=== PATIENT | female | born 1940 | race Caucasian/White ===

== ENCOUNTER 2018-02-16 06:08 | Inpatient (IN) | payer MEDICARE, OTHER ==
[~2018-02-16] VITALS: Ht 152.4 cm; Wt 53.4 kg
[2018-02-16] MEDS ORDERED: SERT50TA PO (06:35)
[2018-02-16] MEDS ORDERED: SENN1TAB7 PO (06:35)
[2018-02-16] MEDS ORDERED: SEVE800T8 PO (06:35)
[2018-02-16] MEDS ORDERED: CARV3.1212 PO (06:35)
[2018-02-16] MEDS ORDERED: ATOR40TA78 PO (06:35)
[2018-02-16] MEDS ORDERED: CALC0.25 PO (06:35)
[2018-02-16] MEDS ORDERED: CIPR500T87 PO (06:35)
[2018-02-16] MEDS ORDERED: ASPI-496 PO (06:35)
[2018-02-16] MEDS ORDERED: LACT100C2 PO (06:35)
[2018-02-16] MEDS ORDERED: FAMO20TA7 PO (06:35)
[2018-02-16] MEDS ORDERED: SODIUM CHLORIDE 0.9% 1,000 ML IV SCH ×2 (06:37→14:00)
[2018-02-16] MEDS ORDERED: FENTANYL PF 250 MCG/5ML ONE (07:01)
[2018-02-16] MEDS ORDERED: MIDAZOLAM 1 MG/ML, 2ML ONE (07:01)
[2018-02-16 07:20] LABS: ALANINE AMINOTRANSFERASE 55 U/L (12-78); ALBUMIN 2.8 g/dL (3.4-5.0); ANION GAP 10 mmol/L (5-15); CALCIUM 7.6 mg/dL (8.5-10.1); CHLORIDE 98 mmol/L (98-107); CREATININE 3.06 mg/dL (0.55-1.02)
[2018-02-16 07:23] LABS: ALKALINE PHOSPHATASE 137 U/L (45-117); BILIRUBIN,TOTAL 0.4 mg/dL (0.2-1.0); TOTAL PROTEIN 7.2 g/dL (6.4-8.2)
[2018-02-16 07:27] LABS: BASOPHILS # (AUTO) 0.02 x10^3/uL (0-0.1); BASOPHILS % (AUTO) 0 % (0-1); EOSINOPHILS % (AUTO) 0 % (1-7); LYMPHOCYTES % (AUTO) 22 % (22-44); MD NO; MEAN CORPUSCULAR HEMOGLOBIN 32.7 pg (27.0-34.8); MEAN CORPUSCULAR HGB CONC 32.1 g/dL (32.4-35.8); MEAN CORPUSCULAR VOLUME 101.9 fL (80-100); MEAN PLATELET VOLUME 8.1 fL (7.4-10.4); MONOCYTES # (AUTO) 0.32 x10^3/uL (0.2-0.8); MONOCYTES % (AUTO) 7 % (2-9); NEUTROPHILS # (AUTO) 3.25 x10^3/uL (1.8-6.8); NEUTROPHILS % (AUTO) 71 % (42-75); PLATELET COUNT 162 x10^3/uL (130-400); RED BLOOD COUNT 3.46 x10^6/uL (3.82-5.3); RED CELL DISTRIBUTION WIDTH 16.9 % (9.6-15.2)
[2018-02-16] MEDS ORDERED: ACETAMINOPHEN 500 MG TABLET PO ONE (07:30)
[2018-02-16] MEDS ORDERED: GABAPENTIN 300 MG CAPSULE PO ONE (07:30)
[2018-02-16] MEDS ORDERED: FENTANYL PF 100 MCG/2ML IV PRN (09:30)
[2018-02-16] MEDS ORDERED: ACETAMINOPHEN 325 MG TABLET PO PRN (09:30)
[2018-02-16] MEDS ORDERED: PLEASE ENTER HEIGHT AND WEIGHT MC SCH (10:30)
[2018-02-16] MEDS ORDERED: SUCCINYLCHOLINE 20 MG/ML, 10ML ONE (10:47)
[2018-02-16] MEDS ORDERED: PROPOFOL 10 MG/ML, 20ML ONE (10:47)
[2018-02-16] MEDS ORDERED: EPHEDRINE 50 MG/ML, 1ML ONE (10:47)
[2018-02-16 13:09] VITALS: BP 93/54
[2018-02-16] MEDS ORDERED: HYDROcodone/APAP 5/325 TABLET PO PRN (14:00)
[2018-02-16] MEDS ORDERED: ENTER SLIDING SCALE INSULIN IF ORDERED XX PRN (14:00)
[2018-02-16] MEDS ORDERED: hydrALAzine 20 MG/ML, 1ML IV PRN (14:00)
[2018-02-16] MEDS ORDERED: ONDANSETRON 2MG/ML, 2ML IVPush PRN (14:30)
[2018-02-16] MEDS ORDERED: POLYETHYLENE GLYCOL 17 GM PACKET PO PRN (14:30)
[2018-02-16] MEDS ORDERED: LABETALOL 5MG/ML, 20ML IVPush PRN (14:30)
[2018-02-16] MEDS ORDERED: ONDANSETRON ODT 4 MG PO PRN (14:30)
[2018-02-16] MEDS ORDERED: FAMOTIDINE 20 MG TABLET PO SCH (14:30)
[2018-02-16 14:58] LABS: FREE T4 (FREE THYROXINE) 0.73 ng/dL (0.76-1.46); THYROID STIMULATING HORMONE 3.64 mIU/L (0.358-3.740)
[2018-02-16] MEDS: CEFAZOLIN PMX 1GM/50ML 50 ML IVPB SCH ×2 (15:26→23:34)
[2018-02-16] MEDS: HEPARIN 5,000 UNITS/ML, 1ML SQ SCH ×2 (15:31→23:34)
[2018-02-16 16:08] LABS: INTERNATIONAL NORMALIZED RATIO 1.19 (0.93-1.1); PROTHROMBIN TIME 12.2 Seconds (9.6-11.5)
[2018-02-16] MEDS: SEVELAMER CARBONATE 800MG TAB PO SCH (17:00)
[2018-02-16] MEDS: INSULIN REGULAR, HUMAN 100 UNIT/ML 3ML VIAL LOW DOSE SS SQ-INSULIN SCH ×2 (18:10→21:00)
[2018-02-16 19:45] VITALS: BP 107/61
[2018-02-16] MEDS: CARVEDILOL 3.125 MG TABLET PO SCH (21:16)
[2018-02-16] MEDS: SODIUM CHLORIDE FLUSH 10ML SYR IVF SCH (21:16)
[2018-02-16] MEDS: ATORVASTATIN 40 MG TABLET PO SCH (21:16)
[2018-02-16 23:38] VITALS: BP 94/53
[2018-02-17] VITALS (7 sets, daily range): BP systolic 85–141; BP diastolic 46–74
[2018-02-17] MEDS: OXYcodone 5 MG/5 ML ORAL.SOL UDC PO PRN ×2 (03:21→03:49)
[2018-02-17 06:00] LABS: ALBUMIN 2.6 g/dL (3.4-5.0); ANION GAP 11 mmol/L (5-15); CALCIUM 7.5 mg/dL (8.5-10.1); CHLORIDE 94 mmol/L (98-107)
[2018-02-17 06:01] LABS: CREATININE 4.74 mg/dL (0.55-1.02)
[2018-02-17 06:16] LABS: BASOPHILS # (AUTO) 0.02 x10^3/uL (0-0.1); BASOPHILS % (AUTO) 0 % (0-1); EOSINOPHILS % (AUTO) 0 % (1-7); LYMPHOCYTES # (AUTO) 1.35 x10^3/uL (1-3.4); LYMPHOCYTES % (AUTO) 23 % (22-44); MD NO; MEAN CORPUSCULAR HEMOGLOBIN 33.4 pg (27.0-34.8); MEAN CORPUSCULAR HGB CONC 32.9 g/dL (32.4-35.8); MEAN CORPUSCULAR VOLUME 101.6 fL (80-100); MEAN PLATELET VOLUME 7.9 fL (7.4-10.4); MONOCYTES # (AUTO) 0.41 x10^3/uL (0.2-0.8); MONOCYTES % (AUTO) 7 % (2-9); NEUTROPHILS # (AUTO) 4.05 x10^3/uL (1.8-6.8); NEUTROPHILS % (AUTO) 69 % (42-75); PLATELET COUNT 136 x10^3/uL (130-400); RED CELL DISTRIBUTION WIDTH 17.2 % (9.6-15.2)
[2018-02-17] MEDS: INSULIN REGULAR, HUMAN 100 UNIT/ML 3ML VIAL LOW DOSE SS SQ-INSULIN SCH ×4 (08:32→21:22)
[2018-02-17] MEDS: SENNA/DOCUSATE TABLET PO SCH ×2 (08:33→09:00)
[2018-02-17] MEDS: ASPIRIN 81 MG TABLET EC PO SCH (08:33)
[2018-02-17] MEDS: CALCITRIOL 0.25 MCG CAPSULE PO SCH (08:33)
[2018-02-17] MEDS: SERTRALINE 50MG TABLET PO SCH (08:33)
[2018-02-17] MEDS: CARVEDILOL 3.125 MG TABLET PO SCH ×3 (09:00→21:06)
[2018-02-17] MEDS: HEPARIN 5,000 UNITS/ML, 1ML SQ SCH ×2 (10:22→18:47)
[2018-02-17] MEDS: SEVELAMER CARBONATE 800MG TAB PO SCH ×2 (10:22→21:05)
[2018-02-17] MEDS: SODIUM CHLORIDE FLUSH 10ML SYR IVF SCH ×2 (10:23→21:00)
[2018-02-17] MEDS ORDERED: ENOXAPARIN 40 MG/0.4 ML SQ SCH (12:00)
[2018-02-17 19:13] LABS: HEMOGLOBIN A1C 7.9 % (4.2-6.3)
[2018-02-17] MEDS: ATORVASTATIN 40 MG TABLET PO SCH (21:06)
[2018-02-17] MEDS: morphine SULFATE 10 MG/ML, 1ML IVPush PRN (21:16)
[2018-02-18 00:55] VITALS: BP 94/56
[2018-02-18] MEDS: HEPARIN 5,000 UNITS/ML, 1ML SQ SCH ×3 (01:59→19:50)
[2018-02-18 05:20] LABS: BASOPHILS # (AUTO) 0.02 x10^3/uL (0-0.1); BASOPHILS % (AUTO) 0 % (0-1); EOSINOPHILS % (AUTO) 0 % (1-7); LYMPHOCYTES # (AUTO) 1.55 x10^3/uL (1-3.4); LYMPHOCYTES % (AUTO) 20 % (22-44); MD NO; MEAN CORPUSCULAR HEMOGLOBIN 33.1 pg (27.0-34.8); MEAN CORPUSCULAR HGB CONC 32.4 g/dL (32.4-35.8); MEAN CORPUSCULAR VOLUME 102.3 fL (80-100); MEAN PLATELET VOLUME 8.1 fL (7.4-10.4); MONOCYTES # (AUTO) 0.57 x10^3/uL (0.2-0.8); MONOCYTES % (AUTO) 7 % (2-9); NEUTROPHILS # (AUTO) 5.72 x10^3/uL (1.8-6.8); NEUTROPHILS % (AUTO) 73 % (42-75); PLATELET COUNT 137 x10^3/uL (130-400); RED BLOOD COUNT 2.99 x10^6/uL (3.82-5.3); RED CELL DISTRIBUTION WIDTH 17.6 % (9.6-15.2)
[2018-02-18 05:25] LABS: ALBUMIN 2.4 g/dL (3.4-5.0); ANION GAP 8 mmol/L (5-15); CALCIUM 8.4 mg/dL (8.5-10.1); CHLORIDE 96 mmol/L (98-107)
[2018-02-18 05:29] LABS: ALANINE AMINOTRANSFERASE 11 U/L (12-78); ALKALINE PHOSPHATASE 98 U/L (45-117); BILIRUBIN,TOTAL 0.6 mg/dL (0.2-1.0); CREATININE 3.39 mg/dL (0.55-1.02); TOTAL PROTEIN 6.6 g/dL (6.4-8.2)
[2018-02-18] MEDS: INSULIN REGULAR, HUMAN 100 UNIT/ML 3ML VIAL LOW DOSE SS SQ-INSULIN SCH ×4 (06:00→21:00)
[2018-02-18] MEDS: SENNA/DOCUSATE TABLET PO SCH ×2 (08:19)
[2018-02-18] MEDS: CALCITRIOL 0.25 MCG CAPSULE PO SCH (08:19)
[2018-02-18] MEDS: SERTRALINE 50MG TABLET PO SCH (08:19)
[2018-02-18] MEDS: SEVELAMER CARBONATE 800MG TAB PO SCH ×2 (08:19→17:38)
[2018-02-18] MEDS: CARVEDILOL 3.125 MG TABLET PO SCH ×3 (08:20→21:19)
[2018-02-18] MEDS: ASPIRIN 81 MG TABLET EC PO SCH (08:20)
[2018-02-18] MEDS: SODIUM CHLORIDE FLUSH 10ML SYR IVF SCH ×2 (08:21→21:00)
[2018-02-18 08:23] VITALS: BP 85/46
[2018-02-18] MEDS ORDERED: SODIUM CHLORIDE 0.9%, 250ML IVBOLUS ONE (08:30)
[2018-02-18 15:33] VITALS: BP 93/57
[2018-02-18 20:00] VITALS: BP 97/55
[2018-02-18] MEDS: ATORVASTATIN 40 MG TABLET PO SCH (21:19)
[2018-02-19] MEDS: morphine SULFATE 10 MG/ML, 1ML IVPush PRN
[2018-02-19 02:00] VITALS: BP 112/64
[2018-02-19] MEDS: HEPARIN 5,000 UNITS/ML, 1ML SQ SCH ×3 (03:28→22:07)
[2018-02-19] MEDS: INSULIN REGULAR, HUMAN 100 UNIT/ML 3ML VIAL LOW DOSE SS SQ-INSULIN SCH ×4 (05:55→21:00)
[2018-02-19] MEDS: CARVEDILOL 3.125 MG TABLET PO SCH ×2 (08:05→21:00)
[2018-02-19] MEDS: SERTRALINE 50MG TABLET PO SCH (08:05)
[2018-02-19] MEDS: CALCITRIOL 0.25 MCG CAPSULE PO SCH (08:05)
[2018-02-19] MEDS: ASPIRIN 81 MG TABLET EC PO SCH (08:05)
[2018-02-19] MEDS: SODIUM CHLORIDE FLUSH 10ML SYR IVF SCH ×2 (08:05→22:07)
[2018-02-19] MEDS: SENNA/DOCUSATE TABLET PO SCH (08:05)
[2018-02-19] MEDS: SEVELAMER CARBONATE 800MG TAB PO SCH ×2 (08:05→16:07)
[2018-02-19 10:00] VITALS: BP 96/46
[2018-02-19 14:44] VITALS: BP 100/53
[2018-02-19 19:49] VITALS: BP 96/59
[2018-02-19] MEDS: ATORVASTATIN 40 MG TABLET PO SCH (22:07)
[2018-02-20 03:13] VITALS: BP 94/59
[2018-02-20] MEDS: HEPARIN 5,000 UNITS/ML, 1ML SQ SCH ×3 (05:07→21:40)
[2018-02-20 05:12] LABS: BASOPHILS # (AUTO) 0.13 x10^3/uL (0-0.1); BASOPHILS % (AUTO) 2 % (0-1); EOSINOPHILS # (AUTO) 0.01 x10^3/uL (0-0.4); EOSINOPHILS % (AUTO) 0 % (1-7); LYMPHOCYTES # (AUTO) 1.29 x10^3/uL (1-3.4); LYMPHOCYTES % (AUTO) 20 % (22-44); MD NO; MEAN CORPUSCULAR HEMOGLOBIN 33.7 pg (27.0-34.8); MEAN CORPUSCULAR HGB CONC 32.8 g/dL (32.4-35.8); MEAN CORPUSCULAR VOLUME 102.6 fL (80-100); MEAN PLATELET VOLUME 8.7 fL (7.4-10.4); MONOCYTES # (AUTO) 0.42 x10^3/uL (0.2-0.8); MONOCYTES % (AUTO) 7 % (2-9); NEUTROPHILS # (AUTO) 4.48 x10^3/uL (1.8-6.8); NEUTROPHILS % (AUTO) 71 % (42-75); PLATELET COUNT 152 x10^3/uL (130-400); RED BLOOD COUNT 2.97 x10^6/uL (3.82-5.3); RED CELL DISTRIBUTION WIDTH 17.3 % (9.6-15.2)
[2018-02-20 05:15] LABS: CHLORIDE 95 mmol/L (98-107)
[2018-02-20 05:23] LABS: ALBUMIN 2.4 g/dL (3.4-5.0); ANION GAP 12 mmol/L (5-15); CREATININE 5.61 mg/dL (0.55-1.02)
[2018-02-20] MEDS: INSULIN REGULAR, HUMAN 100 UNIT/ML 3ML VIAL LOW DOSE SS SQ-INSULIN SCH ×4 (07:00→21:00)
[2018-02-20] MEDS: SENNA/DOCUSATE TABLET PO SCH (09:00)
[2018-02-20] MEDS ORDERED: ALBUMIN HUMAN 25% 50 ML IV PRN (09:00)
[2018-02-20] MEDS: CARVEDILOL 3.125 MG TABLET PO SCH ×2 (09:00→21:00)
[2018-02-20] MEDS: CALCITRIOL 0.25 MCG CAPSULE PO SCH (09:00)
[2018-02-20] MEDS ORDERED: ALBUMIN HUMAN 25% 100 ML IV PRN (09:00)
[2018-02-20] MEDS: SEVELAMER CARBONATE 800MG TAB PO SCH ×2 (12:00→18:38)
[2018-02-20] MEDS: SODIUM CHLORIDE FLUSH 10ML SYR IVF SCH ×2 (15:01→21:40)
[2018-02-20] MEDS: ASPIRIN 81 MG TABLET EC PO SCH (15:02)
[2018-02-20] MEDS: SERTRALINE 50MG TABLET PO SCH (15:02)
[2018-02-20] MEDS ORDERED: HYDROmorphone 2 MG/ML, 1ML ONE (15:35)
[2018-02-20] MEDS ORDERED: HYDROmorphone 1 MG/ML, 1ML IV ONE (15:35)
[2018-02-20] MEDS ORDERED: NALOXONE 0.4 MG/ML, 1ML ONE (16:13)
[2018-02-20] MEDS ORDERED: MORPHINE SULFATE 4 MG/ML, 1ML ONE ×2 (16:25→16:32)
[2018-02-20] MEDS ORDERED: MORPHINE SULFATE 4 MG/ML, 1ML IVPush PRN ×2 (16:30→16:35)
[2018-02-20] MEDS ORDERED: HALOPERIDOL 5 MG/ML ONE (16:44)
[2018-02-20] MEDS ORDERED: HALOPERIDOL 5 MG/ML IM PRN (16:50)
[2018-02-20] MEDS ORDERED: NALOXONE 0.4 MG/ML, 1ML IVPush ONE (17:30)
[2018-02-20 19:51] VITALS: BP 96/62
[2018-02-20] MEDS: ATORVASTATIN 40 MG TABLET PO SCH ×2 (21:41→21:48)
[2018-02-21 01:57] VITALS: BP 87/48
[2018-02-21 05:55] LABS: ALANINE AMINOTRANSFERASE 24 U/L (12-78); ALBUMIN 2.5 g/dL (3.4-5.0); ANION GAP 9 mmol/L (5-15); BASOPHILS # (AUTO) 0.02 x10^3/uL (0-0.1); BASOPHILS % (AUTO) 0 % (0-1); CALCIUM 8.5 mg/dL (8.5-10.1); CHLORIDE 95 mmol/L (98-107); CREATININE 3.76 mg/dL (0.55-1.02); EOSINOPHILS # (AUTO) 0.01 x10^3/uL (0-0.4); EOSINOPHILS % (AUTO) 0 % (1-7); LYMPHOCYTES # (AUTO) 1.02 x10^3/uL (1-3.4); LYMPHOCYTES % (AUTO) 18 % (22-44); MD NO; MEAN CORPUSCULAR HEMOGLOBIN 33.8 pg (27.0-34.8); MEAN CORPUSCULAR HGB CONC 32.5 g/dL (32.4-35.8); MEAN PLATELET VOLUME 8.3 fL (7.4-10.4); MONOCYTES # (AUTO) 0.43 x10^3/uL (0.2-0.8); MONOCYTES % (AUTO) 8 % (2-9); NEUTROPHILS % (AUTO) 73 % (42-75); PLATELET COUNT 167 x10^3/uL (130-400); RED BLOOD COUNT 3.13 x10^6/uL (3.82-5.3); RED CELL DISTRIBUTION WIDTH 18.1 % (9.6-15.2)
[2018-02-21 05:57] LABS: ALKALINE PHOSPHATASE 212 U/L (45-117); BILIRUBIN,TOTAL 0.6 mg/dL (0.2-1.0); TOTAL PROTEIN 6.5 g/dL (6.4-8.2)
[2018-02-21] MEDS: HEPARIN 5,000 UNITS/ML, 1ML SQ SCH ×2 (06:05→14:20)
[2018-02-21] MEDS: INSULIN REGULAR, HUMAN 100 UNIT/ML 3ML VIAL LOW DOSE SS SQ-INSULIN SCH ×3 (07:00→16:00)
[2018-02-21] MEDS: SODIUM CHLORIDE FLUSH 10ML SYR IVF SCH (08:18)
[2018-02-21] MEDS: CARVEDILOL 3.125 MG TABLET PO SCH (08:18)
[2018-02-21 08:19] VITALS: BP 92/48
[2018-02-21] MEDS ORDERED: MORPHINE SULFATE 4 MG/ML, 1ML IVPush PRN (09:00)
[2018-02-21] MEDS: SEVELAMER CARBONATE 800MG TAB PO SCH ×3 (10:01→17:44)
[2018-02-21] MEDS: CALCITRIOL 0.25 MCG CAPSULE PO SCH (10:02)
[2018-02-21] MEDS: ASPIRIN 81 MG TABLET EC PO SCH (10:02)
[2018-02-21] MEDS: SENNA/DOCUSATE TABLET PO SCH (10:02)
[2018-02-21] MEDS ORDERED: SODIUM CHLORIDE 0.9%, 250ML IVBOLUS ONE (13:00)
[2018-02-21] MEDS ORDERED: LACTATED RINGERS 500 ML IVBOLUS ONE (13:00)
[2018-02-21 14:20] VITALS: BP 81/40
[2018-02-21 16:20] VITALS: BP 95/47
[2018-02-21 19:38] VITALS: BP 96/60
[2018-02-22] MEDS: HEPARIN 5,000 UNITS/ML, 1ML SQ SCH ×3 (01:32→21:14)
[2018-02-22] MEDS: SERTRALINE 50MG TABLET PO SCH ×2 (01:32→21:14)
[2018-02-22] MEDS: SODIUM CHLORIDE FLUSH 10ML SYR IVF SCH ×3 (01:34→21:14)
[2018-02-22] MEDS: INSULIN REGULAR, HUMAN 100 UNIT/ML 3ML VIAL LOW DOSE SS SQ-INSULIN SCH ×5 (01:42→21:00)
[2018-02-22 02:35] VITALS: BP 115/71
[2018-02-22 05:48] LABS: BASOPHILS # (AUTO) 0.02 x10^3/uL (0-0.1); BASOPHILS % (AUTO) 0 % (0-1); EOSINOPHILS % (AUTO) 0 % (1-7); LYMPHOCYTES # (AUTO) 0.73 x10^3/uL (1-3.4); LYMPHOCYTES % (AUTO) 13 % (22-44); MD NO; MEAN CORPUSCULAR HEMOGLOBIN 33.6 pg (27.0-34.8); MEAN CORPUSCULAR HGB CONC 32.5 g/dL (32.4-35.8); MEAN CORPUSCULAR VOLUME 103.4 fL (80-100); MEAN PLATELET VOLUME 7.9 fL (7.4-10.4); MONOCYTES # (AUTO) 0.41 x10^3/uL (0.2-0.8); MONOCYTES % (AUTO) 7 % (2-9); NEUTROPHILS # (AUTO) 4.35 x10^3/uL (1.8-6.8); NEUTROPHILS % (AUTO) 79 % (42-75); PLATELET COUNT 179 x10^3/uL (130-400); RED BLOOD COUNT 3.26 x10^6/uL (3.82-5.3); RED CELL DISTRIBUTION WIDTH 18.2 % (9.6-15.2)
[2018-02-22 05:49] LABS: ALBUMIN 2.5 g/dL (3.4-5.0); ANION GAP 10 mmol/L (5-15); CALCIUM 8.3 mg/dL (8.5-10.1); CHLORIDE 95 mmol/L (98-107)
[2018-02-22 05:54] LABS: ALANINE AMINOTRANSFERASE 28 U/L (12-78); ALKALINE PHOSPHATASE 190 U/L (45-117); BILIRUBIN,TOTAL 0.4 mg/dL (0.2-1.0); TOTAL PROTEIN 6.7 g/dL (6.4-8.2)
[2018-02-22 07:06] VITALS: BP 93/60
[2018-02-22] MEDS: SEVELAMER CARBONATE 800MG TAB PO SCH ×3 (08:00→18:05)
[2018-02-22] MEDS: ASPIRIN 81 MG TABLET EC PO SCH (09:00)
[2018-02-22] MEDS ORDERED: VANCOMYCIN PER PHARMACY MC PRN (09:00)
[2018-02-22] MEDS ORDERED: PHARMACOKINETIC CONSULTATION MC ONE (09:00)
[2018-02-22] MEDS ORDERED: PHARMACOKINETIC MONITORING MC PRN (09:00)
[2018-02-22] MEDS ORDERED: VANCOMYCIN 1,000 MG in SODIUM CHLORIDE 0.9% 100 ML IV ONE (10:00)
[2018-02-22] MEDS: SENNA/DOCUSATE TABLET PO SCH (15:40)
[2018-02-22] MEDS: CALCITRIOL 0.25 MCG CAPSULE PO SCH (15:41)
[2018-02-22] MEDS: ACETAMINOPHEN 325 MG TABLET PO PRN (18:42)
[2018-02-22 19:01] VITALS: BP 116/40
[2018-02-22] MEDS: ATORVASTATIN 40 MG TABLET PO SCH (21:14)
[2018-02-23 00:53] VITALS: BP 118/68
[2018-02-23 05:32] LABS: ALANINE AMINOTRANSFERASE 30 U/L (12-78); ALBUMIN 2.7 g/dL (3.4-5.0); ANION GAP 9 mmol/L (5-15); CALCIUM 8.6 mg/dL (8.5-10.1); CHLORIDE 94 mmol/L (98-107); CREATININE 3.42 mg/dL (0.55-1.02)
[2018-02-23] MEDS: ACETAMINOPHEN 325 MG TABLET PO PRN (05:34)
[2018-02-23] MEDS: HEPARIN 5,000 UNITS/ML, 1ML SQ SCH ×3 (05:34→21:09)
[2018-02-23 05:35] LABS: ALKALINE PHOSPHATASE 183 U/L (45-117); BILIRUBIN,TOTAL 0.7 mg/dL (0.2-1.0)
[2018-02-23] MEDS: INSULIN REGULAR, HUMAN 100 UNIT/ML 3ML VIAL LOW DOSE SS SQ-INSULIN SCH ×4 (06:25→21:29)
[2018-02-23 07:18] VITALS: BP 95/59
[2018-02-23 07:24] LABS: BASOPHILS # (AUTO) 0.05 x10^3/uL (0-0.1); BASOPHILS % (AUTO) 1 % (0-1); EOSINOPHILS # (AUTO) 0.01 x10^3/uL (0-0.4); EOSINOPHILS % (AUTO) 0 % (1-7); LYMPHOCYTES # (AUTO) 1.21 x10^3/uL (1-3.4); LYMPHOCYTES % (AUTO) 16 % (22-44); MD NO; MEAN CORPUSCULAR HEMOGLOBIN 33.2 pg (27.0-34.8); MEAN CORPUSCULAR HGB CONC 32.2 g/dL (32.4-35.8); MEAN CORPUSCULAR VOLUME 103.3 fL (80-100); MEAN PLATELET VOLUME 8.6 fL (7.4-10.4); MONOCYTES # (AUTO) 0.44 x10^3/uL (0.2-0.8); MONOCYTES % (AUTO) 6 % (2-9); NEUTROPHILS # (AUTO) 5.82 x10^3/uL (1.8-6.8); NEUTROPHILS % (AUTO) 77 % (42-75); PLATELET COUNT 199 x10^3/uL (130-400); RED BLOOD COUNT 3.69 x10^6/uL (3.82-5.3); RED CELL DISTRIBUTION WIDTH 18.7 % (9.6-15.2)
[2018-02-23] MEDS: ASPIRIN 81 MG TABLET EC PO SCH (08:08)
[2018-02-23] MEDS: CALCITRIOL 0.25 MCG CAPSULE PO SCH (08:08)
[2018-02-23] MEDS: SENNA/DOCUSATE TABLET PO SCH (08:08)
[2018-02-23] MEDS: SEVELAMER CARBONATE 800MG TAB PO SCH ×3 (08:08→17:18)
[2018-02-23] MEDS: SERTRALINE 50MG TABLET PO SCH (08:08)
[2018-02-23] MEDS: SODIUM CHLORIDE FLUSH 10ML SYR IVF SCH ×2 (08:09→21:09)
[2018-02-23 14:04] VITALS: BP 101/64
[2018-02-23 19:53] VITALS: BP 105/46
[2018-02-23] MEDS: ATORVASTATIN 40 MG TABLET PO SCH (21:09)
[2018-02-24 02:15] VITALS: BP 110/68
[2018-02-24] MEDS: HEPARIN 5,000 UNITS/ML, 1ML SQ SCH ×3 (05:13→20:10)
[2018-02-24 05:29] LABS: BASOPHILS # (AUTO) 0.05 x10^3/uL (0-0.1); BASOPHILS % (AUTO) 1 % (0-1); EOSINOPHILS # (AUTO) 0.01 x10^3/uL (0-0.4); EOSINOPHILS % (AUTO) 0 % (1-7); LYMPHOCYTES % (AUTO) 15 % (22-44); MD NO; MEAN CORPUSCULAR HEMOGLOBIN 34.1 pg (27.0-34.8); MEAN CORPUSCULAR HGB CONC 33.1 g/dL (32.4-35.8); MEAN PLATELET VOLUME 7.7 fL (7.4-10.4); MONOCYTES # (AUTO) 0.61 x10^3/uL (0.2-0.8); MONOCYTES % (AUTO) 8 % (2-9); NEUTROPHILS # (AUTO) 6.33 x10^3/uL (1.8-6.8); NEUTROPHILS % (AUTO) 77 % (42-75); PLATELET COUNT 192 x10^3/uL (130-400); RED BLOOD COUNT 3.28 x10^6/uL (3.82-5.3); RED CELL DISTRIBUTION WIDTH 19.1 % (9.6-15.2)
[2018-02-24 05:32] LABS: ALBUMIN 2.5 g/dL (3.4-5.0); ANION GAP 10 mmol/L (5-15); CALCIUM 8.8 mg/dL (8.5-10.1); CHLORIDE 94 mmol/L (98-107)
[2018-02-24 05:35] LABS: ALANINE AMINOTRANSFERASE 19 U/L (12-78); ALKALINE PHOSPHATASE 138 U/L (45-117); BILIRUBIN,TOTAL 0.8 mg/dL (0.2-1.0); CREATININE 4.49 mg/dL (0.55-1.02); TOTAL PROTEIN 6.4 g/dL (6.4-8.2)
[2018-02-24] MEDS: INSULIN REGULAR, HUMAN 100 UNIT/ML 3ML VIAL LOW DOSE SS SQ-INSULIN SCH ×4 (06:33→20:14)
[2018-02-24 06:35] VITALS: BP 94/54
[2018-02-24] MEDS: SEVELAMER CARBONATE 800MG TAB PO SCH ×3 (08:00→17:02)
[2018-02-24] MEDS: CALCITRIOL 0.25 MCG CAPSULE PO SCH (08:02)
[2018-02-24] MEDS: ASPIRIN 81 MG TABLET EC PO SCH (08:02)
[2018-02-24] MEDS: SERTRALINE 50MG TABLET PO SCH (08:02)
[2018-02-24] MEDS: SENNA/DOCUSATE TABLET PO SCH (08:02)
[2018-02-24] MEDS: SODIUM CHLORIDE FLUSH 10ML SYR IVF SCH ×2 (08:02→20:10)
[2018-02-24 14:39] VITALS: BP 97/59
[2018-02-24] MEDS: OXYcodone 5 MG/5 ML ORAL.SOL UDC PO PRN (17:04)
[2018-02-24 19:29] VITALS: BP 96/60
[2018-02-24] MEDS: ATORVASTATIN 40 MG TABLET PO SCH (20:10)
[2018-02-24 21:13] VITALS: BP 126/83
[2018-02-25 03:03] VITALS: BP 94/55
[2018-02-25] MEDS: HEPARIN 5,000 UNITS/ML, 1ML SQ SCH ×5 (05:08→23:14)
[2018-02-25 05:17] LABS: ALBUMIN 2.4 g/dL (3.4-5.0); ANION GAP 10 mmol/L (5-15); CALCIUM 8.8 mg/dL (8.5-10.1); CHLORIDE 95 mmol/L (98-107)
[2018-02-25 05:21] LABS: ALANINE AMINOTRANSFERASE 14 U/L (12-78); ALKALINE PHOSPHATASE 134 U/L (45-117); BILIRUBIN,TOTAL 0.7 mg/dL (0.2-1.0); CREATININE 3.37 mg/dL (0.55-1.02); TOTAL PROTEIN 6.5 g/dL (6.4-8.2); VANCOMYCIN,RANDOM 7.7 mcg/mL
[2018-02-25 06:40] VITALS: BP 100/53
[2018-02-25] MEDS: SEVELAMER CARBONATE 800MG TAB PO SCH ×4 (09:16→17:11)
[2018-02-25] MEDS: SERTRALINE 50MG TABLET PO SCH ×2 (09:16→09:53)
[2018-02-25] MEDS: SENNA/DOCUSATE TABLET PO SCH ×2 (09:16→09:53)
[2018-02-25] MEDS: CALCITRIOL 0.25 MCG CAPSULE PO SCH ×2 (09:16→09:53)
[2018-02-25] MEDS: SODIUM CHLORIDE FLUSH 10ML SYR IVF SCH ×2 (09:17→20:38)
[2018-02-25] MEDS: ASPIRIN 81 MG TABLET EC PO SCH ×2 (09:18→09:53)
[2018-02-25] MEDS: INSULIN REGULAR, HUMAN 100 UNIT/ML 3ML VIAL LOW DOSE SS SQ-INSULIN SCH ×4 (09:19→20:55)
[2018-02-25 12:11] VITALS: BP 102/74
[2018-02-25 20:08] VITALS: BP 97/63
[2018-02-25] MEDS: OXYcodone 5 MG/5 ML ORAL.SOL UDC PO PRN (20:37)
[2018-02-25] MEDS: ATORVASTATIN 40 MG TABLET PO SCH (20:38)
[2018-02-26 04:08] VITALS: BP 100/42
[2018-02-26] MEDS: HEPARIN 5,000 UNITS/ML, 1ML SQ SCH ×3 (05:07→21:09)
[2018-02-26 06:45] VITALS: BP 102/50
[2018-02-26] MEDS: ASPIRIN 81 MG TABLET EC PO SCH (08:31)
[2018-02-26] MEDS: SENNA/DOCUSATE TABLET PO SCH (08:31)
[2018-02-26] MEDS: OXYcodone 5 MG/5 ML ORAL.SOL UDC PO PRN ×2 (08:31→17:00)
[2018-02-26] MEDS: SEVELAMER CARBONATE 800MG TAB PO SCH ×3 (08:31→17:00)
[2018-02-26] MEDS: SODIUM CHLORIDE FLUSH 10ML SYR IVF SCH ×2 (08:32→21:08)
[2018-02-26] MEDS: CALCITRIOL 0.25 MCG CAPSULE PO SCH (08:32)
[2018-02-26] MEDS: SERTRALINE 50MG TABLET PO SCH (08:32)
[2018-02-26] MEDS: INSULIN REGULAR, HUMAN 100 UNIT/ML 3ML VIAL LOW DOSE SS SQ-INSULIN SCH ×4 (08:33→21:09)
[2018-02-26 08:40] LABS: ALBUMIN 2.6 g/dL (3.4-5.0); ANION GAP 9 mmol/L (5-15); CALCIUM 8.9 mg/dL (8.5-10.1); CHLORIDE 95 mmol/L (98-107); CREATININE 4.81 mg/dL (0.55-1.02)
[2018-02-26 08:49] LABS: MEAN CORPUSCULAR HEMOGLOBIN 33.6 pg (27.0-34.8); MEAN CORPUSCULAR HGB CONC 32.4 g/dL (32.4-35.8); MEAN CORPUSCULAR VOLUME 103.7 fL (80-100); MEAN PLATELET VOLUME 7.5 fL (7.4-10.4); PLATELET COUNT 217 x10^3/uL (130-400); RED BLOOD COUNT 3.43 x10^6/uL (3.82-5.3); RED CELL DISTRIBUTION WIDTH 19.3 % (9.6-15.2)
[2018-02-26 09:09] LABS: BASOPHILS % (AUTO) 0 % (0-1); EOSINOPHILS # (AUTO) 0.01 x10^3/uL (0-0.4); EOSINOPHILS % (AUTO) 0 % (1-7); LYMPHOCYTES # (AUTO) 1.18 x10^3/uL (1-3.4); LYMPHOCYTES % (AUTO) 18 % (22-44); MD SCAN; MONOCYTES # (AUTO) 0.27 x10^3/uL (0.2-0.8); MONOCYTES % (AUTO) 4 % (2-9); NEUTROPHILS # (AUTO) 5.11 x10^3/uL (1.8-6.8); NEUTROPHILS % (AUTO) 78 % (42-75)
[2018-02-26 12:45] VITALS: BP 113/62
[2018-02-26 19:14] VITALS: BP 96/53
[2018-02-26] MEDS: ACETAMINOPHEN 325 MG TABLET PO PRN (19:59)
[2018-02-26] MEDS: ATORVASTATIN 40 MG TABLET PO SCH (21:09)
[2018-02-27 01:37] VITALS: BP 93/52
[2018-02-27] MEDS: OXYcodone 5 MG/5 ML ORAL.SOL UDC PO PRN (05:33)
[2018-02-27] MEDS: HEPARIN 5,000 UNITS/ML, 1ML SQ SCH ×2 (05:34→13:00)
[2018-02-27 06:40] VITALS: BP 91/47
[2018-02-27] MEDS: INSULIN REGULAR, HUMAN 100 UNIT/ML 3ML VIAL LOW DOSE SS SQ-INSULIN SCH ×3 (07:49→16:56)
[2018-02-27] MEDS: SEVELAMER CARBONATE 800MG TAB PO SCH ×3 (07:49→16:56)
[2018-02-27] MEDS: ASPIRIN 81 MG TABLET EC PO SCH (07:49)
[2018-02-27] MEDS: SENNA/DOCUSATE TABLET PO SCH (07:49)
[2018-02-27] MEDS: CALCITRIOL 0.25 MCG CAPSULE PO SCH (07:49)
[2018-02-27] MEDS: SERTRALINE 50MG TABLET PO SCH (07:49)
[2018-02-27] MEDS: SODIUM CHLORIDE FLUSH 10ML SYR IVF SCH (07:50)
[2018-02-27 16:29] VITALS: BP 83/41
== END 2018-02-27 18:21 | DRG 474 ==
LOC: ORIP 06:08 → EDSTATUS 07:30 → 4NOR 10:26 → 4WST 02-24 21:55
PROVIDERS: ADMIT Surgery; ATTEND Surgery
PROC: 0Y6H0Z1 Detachment at Right Lower Leg, High, Open Approach (ICD-10-PCS; principal; 2018-02-16 07:30)
PROC: 5A1D70Z Performance of Urinary Filtration, Intermittent, Less than 6 Hours Per Day (ICD-10-PCS; 2018-02-17)
PROC: 5A1D70Z Performance of Urinary Filtration, Intermittent, Less than 6 Hours Per Day (ICD-10-PCS; 2018-02-20)
PROC: 5A1D70Z Performance of Urinary Filtration, Intermittent, Less than 6 Hours Per Day (ICD-10-PCS; 2018-02-22)
PROC: 5A1D70Z Performance of Urinary Filtration, Intermittent, Less than 6 Hours Per Day (ICD-10-PCS; 2018-02-24)
PROC: 5A1D70Z Performance of Urinary Filtration, Intermittent, Less than 6 Hours Per Day (ICD-10-PCS; 2018-02-27)
DX: T87.43 Infection of amputation stump, right lower extremity (principal); G82.50 Quadriplegia, unspecified; E43 Unspecified severe protein-calorie malnutrition; N18.6 End stage renal disease; E87.1 Hypo-osmolality and hyponatremia; I12.0 Hypertensive chronic kidney disease with stage 5 chronic kidney disease or end stage renal disease; Z88.8 Allergy status to other drugs, medicaments and biological substances; Z68.23 Body mass index [BMI] 23.0-23.9, adult; B95.4 Other streptococcus as the cause of diseases classified elsewhere; D63.1 Anemia in chronic kidney disease; E11.22 Type 2 diabetes mellitus with diabetic chronic kidney disease; E11.51 Type 2 diabetes mellitus with diabetic peripheral angiopathy without gangrene; E78.5 Hyperlipidemia, unspecified; E11.65 Type 2 diabetes mellitus with hyperglycemia; F03.90 Unspecified dementia, unspecified severity, without behavioral disturbance, psychotic disturbance, mood disturbance, and anxiety; K21.9 Gastro-esophageal reflux disease without esophagitis; K59.00 Constipation, unspecified; M85.80 Other specified disorders of bone density and structure, unspecified site; Y83.5 Amputation of limb(s) as the cause of abnormal reaction of the patient, or of later complication, without mention of misadventure at the time of the procedure; Z89.512 Acquired absence of left leg below knee; Z90.710 Acquired absence of both cervix and uterus; Z79.4 Long term (current) use of insulin; Z99.2 Dependence on renal dialysis; Z98.84 Bariatric surgery status; Z90.49 Acquired absence of other specified parts of digestive tract
CPT/HCPCS: 36415; 71045; 72170; 80048; 80053; 80069; 80202; 82040; 82306; 82962; 83036; 83735; 83970; 84100; 84439; 84443; 84550; 85025; 85610; 86704; 86706; 87040; 87340; 88307; 93005; C1729; J0690; J1170; J1644; J1815; J2250; J2310; J2704; J3010; J3370; J7120; P9047; J0330; J1630; J2270; J7030; J7050